=== PATIENT | male | born 1975 | race Two or more races ===

== ENCOUNTER 2017-03-16 08:14 | Day surgery (SDC) | payer MEDICAID ==
[2017-03-16 09:18] VITALS: O2SAT 100
[2017-03-16] MEDS ORDERED: Lactated Ringer's 1,000 ML IV ONE (12:10)
[2017-03-16] MEDS ORDERED: Midazolam 2 MG/2 ML VIAL ONE (12:13)
[2017-03-16] MEDS ORDERED: Propofol 10 mg/ml Inj (20 ML) ONE (12:13)
[2017-03-16] MEDS ORDERED: Lactated Ringer's 500 ML IV SCH (12:30)
[2017-03-16 13:48] VITALS: BP 132/88; PULSE 63; RESP 13; TEMP 97.2
== END 2017-03-16 13:40 | disposition home or self-care (01) ==
LOC: C.ENDO 08:14
PROVIDERS: ATTEND Internal Medicine Gastroenterology
DX: K29.50 Unspecified chronic gastritis without bleeding (principal); R10.13 Epigastric pain

== ENCOUNTER 2017-04-18 07:35 | Emergency (ER) | payer MEDICAID ==
[2017-04-18 07:39] VITALS: BMI 25.9
[2017-04-18 07:40] VITALS: RESP 18; O2SAT 100
[2017-04-18] MEDS ORDERED: Aspirin 325 mg EC Tablets PO STA (08:11)
[2017-04-18 08:39] LABS: INR 1.1
[2017-04-18 08:43] LABS: BASO % 0.7 % (0.0-2.0); CHLORIDE 100 mmol/L (98-107); EOS # 0.1 K/uL (0.0-0.7); LYMPH # 1.4 K/uL (1.0-4.3); LYMPH % 48.7 % (20.0-40.0); MEAN CELL VOLUME 82.5 fL (80.0-94.0); MEAN CORPUSCULAR HGB CONC 32.7 g/dL (33.0-37.0); MONO # 0.3 K/uL (0.0-0.8); MONO % 10.9 % (0.0-10.0); NRBC % 0.2 % (0.0-2.0); POTASSIUM 4.1 mmol/L (3.6-5.2); RED CELL DISTRIBUTION WIDTH 13.5 % (11.5-14.5); SODIUM 137 mmol/L (132-148)
[2017-04-18 08:44] LABS: RBC URINE < 1 /hpf (0-3); URINE BILIRUBIN NEGATIVE (NEGATIVE); URINE BLOOD NEGATIVE (NEGATIVE); URINE COLOR Yellow (YELLOW); URINE GLUCOSE (UA) NORMAL (Normal); URINE KETONE NEGATIVE (NEGATIVE); URINE LEUKOCYTE ESTERASE NEG Leu/uL (Negative); URINE PROTEIN NEGATIVE (NEGATIVE); URINE UROBILINOGEN NORMAL mg/dL (0.2-1.0); WBC URINE 1 /hpf (0-5)
[2017-04-18 08:44] LABS: WHITE BLOOD COUNT 2.8 K/uL (4.8-10.8)
[2017-04-18 08:45] LABS: CHOLESTEROL 134 mg/dL (0-199); GFR AFRICAN-AMERICAN > 60
[2017-04-18 08:46] LABS: ALB/GLOB RATIO 1.8 (1.0-2.1); ALKALINE PHOSPHATASE 44 U/L (38-126); ALT/SGPT 35 U/L (21-72); AST/SGOT 24 U/L (17-59); BILIRUBIN,TOTAL 0.8 mg/dL (0.2-1.3); BLOOD UREA NITROGEN 10 mg/dL (9-20); CALCIUM 9.7 mg/dl (8.6-10.4); CARBON DIOXIDE 28 mmol/L (22-30); GLUCOSE,RANDOM 93 mg/dL (75-110); TOTAL PROTEIN 7.3 g/dL (6.3-8.3)
--- NOTE | 2017-04-18 09:12 | C.PDOC ---
History Of Present Illness 41 year old male with a history of gastritis presents to the ED with complaints of left sided chest pain intermittently with associated palpitations for 8 months. He states symptoms worsening 4 days ago when he felt an associated shortness of breath that has since resolved. Patient reports he has sought evaluation from his PMD Dr. Scott, Cargiologist Dr. Cade, and [facility] with results of Stress Test, US, and Echo showed no implications of cardiac disease. An endoscopy performed showed gastritis and patient states he is not taking any medication for it. Patient denies FMHx of heart disease or hx of smoking. Patient denies left arm pain, weakness, numbness, or other complaints at this time. Time Seen by Provider: 04/18/17 07:56 Chief Complaint (Nursing): Chest Pain History Per: Patient History/Exam Limitations: no limitations Onset/Duration Of Symptoms: Intermittent Episodes, Persistent (8 months ), Worse Since (4 days ) Current Symptoms Are (Timing): Still Present Quality: Other (described as bloating, throbbing sensation ) Modifying Factors: None Exacerbating Factors: Exertion (at times, not consistently ) Alleviating Factors: None Recent travel outside of the [place]: No Past Medical History Reviewed: Historical Data, Nursing Documentation, Vital Signs Vital Signs: Last Vital Signs Temp 98.0 F 04/18/17 09:32 Pulse 66 04/18/17 09:32 Resp 18 04/18/17 09:32 BP 131/79 04/18/17 09:32 Pulse Ox 100 04/18/17 11:05 Family History: States: Unknown Family Hx - Social History Hx Tobacco Use: Yes (2 cig every 2 weeks) Hx Alcohol Use: Yes (social) Hx Substance Use: No - Immunization History Hx Tetanus Toxoid Vaccination: No Hx Influenza Vaccination: Yes Hx Pneumococcal Vaccination: No Review Of Systems Constitutional: Negative for: Fever, Chills Cardiovascular: Positive for: Chest Pain, Palpitations Respiratory: Negative for: Cough, Shortness of Breath Gastrointestinal: Negative for: Nausea, Vomiting, Abdominal Pain, Diarrhea Neurological: Negative for: Weakness, Numbness Physical Exam - Physical Exam Appears: Non-toxic, No Acute Distress Skin: Warm, Dry, No Rash Head: Atraumatic, Normacephalic, No Tenderness Eye(s): bilateral: Normal Inspection, PERRL, EOMI Oral Mucosa: Moist Neck: Normal ROM, Supple Chest: Symmetrical, No Deformity, No Tenderness Cardiovascular: Rhythm Regular, No Murmur Respiratory: No Rales, No Rhonchi, No Wheezing, Other (clear to auscultation bilaterally ) Gastrointestinal/Abdominal: Soft, No Tenderness, No Distention, No Guarding, No Rebound Extremity: Normal ROM, No Tenderness, No Pedal Edema, No Calf Tenderness, Capillary Refill (< 2 seconds ), No Deformity, No Swelling Neurological/Psych: Oriented x3, Normal Speech, Other (Patient appears anxious) ED Course And Treatment - Laboratory Results Result Diagrams: 04/18/17 08:27 04/18/17 08:27 Lab Interpretation: No Acute Changes ECG: Interpreted By Me, Viewed By Me ECG Rhythm: Sinus Rhythm Interpretation Of ECG: Normal axis, no ST-T wave changes. Rate From EC O2 Sat by Pulse Oximetry: 100 (RA) Pulse Ox Interpretation: Normal - Radiology CXR: Viewed By Me, Read By Radiologist CXR Interpretation: Yes: No Acute Disease, Other (No focal consolidation, significant pleural effusion, or definite pneumothorax identified.) Progress Note: EKG, CXR, blood work, and labs were ordered. Patient was given Aspirin. Medical Decision Making Medical Decision Making: Impression: Chest pain on and off for 8 months, prior cardiac workups in the past at [facility]. Likely anxiety vs musculoskeletal Prior records reviewed: Endoscopy on 03/16/[address] Leon, Dx gastritis, negative for H. Pylori US from 03/29/17 shows 3mm nonmobile nonshadowing echogenic foci at level of gallbladder which may represent polyp. Plan * EKG * CXR * Labs Progress: EKG reviewed and NS with no ischemic changes CXR shows normal heart size and no cardiopulmonary disease Labs reviewed and showed leukopenia, no prior comparison. Otherwise negative troponin. Normal H/H. Normal lipids. Discussed results with patient, and copy of report was provided. On re-examination, patient is resting comfortably in no acute distress. Patient reports improvement of symptoms. Patient feels comfortable going home and will be discharged. Patient given follow up instructions. Instructed to return to ER if symptoms worsen or new symptoms arise. Disposition Counseled Patient/Family Regarding: Studies Performed, Diagnosis, Need For Followup - Disposition Referrals: Liv Scott MD [Staff Provider] - Arturo Leon MD [Staff Provider] - Disposition: HOME/ ROUTINE Disposition Time: 09:34 Condition: STABLE Additional Instructions: All your labs, Chest xray and EKG were normal. It is important that you follow up with primary doctor and with forklift driver for further evaluation and care You have gastritis and may take omeprazole as needed for any pain, if pain is daily then take daily Prescriptions: Omeprazole 20 mg PO DAILY #30 capsule.dr Instructions: Gastritis (DC), Diet for Ulcers and Gastritis (ED), Noncardiac Chest Pain (ED) Forms: [employer] (K[place]i) - POA Present On Arrival: None - Clinical Impression Clinical Impression: Non-cardiac chest pain, Gastritis - PA / BENDING ROLL HAND / Resident Statement MD/DO has reviewed & agrees with the documentation as recorded. - Scribe Statement The provider has reviewed the documentation as recorded by the Rajendraibsilvestre Trivedi All medical record entries made by the Mick were at my direction and personally dictated by me. I have reviewed the chart and agree that the record accurately reflects my personal performance of the history, physical exam, medical decision making, and the department course for this patient. I have also personally directed, reviewed, and agree with the discharge instructions and disposition.
[2017-04-18 09:33] VITALS: BP 131/79; PULSE 66; TEMP 98
--- NOTE | 2017-04-18 10:27 | RAD ---
HISTORY: chest pain COMPARISON: None available. TECHNIQUE: Chest PA and lateral FINDINGS: LUNGS: No focal consolidation. Please note that chest x-ray has limited sensitivity for the detection of pulmonary masses. PLEURA: No significant pleural effusion identified. No definite pneumothorax . CARDIOVASCULAR: The cardiomediastinal silhouette appears within normal limits of size. OSSEOUS STRUCTURES: No acute osseous abnormality identified. VISUALIZED UPPER ABDOMEN: Unremarkable. OTHER FINDINGS: None. IMPRESSION: No focal consolidation, significant pleural effusion, or definite pneumothorax identified.
--- NOTE | 2017-04-20 08:43 | CARD ---
APPROVED REPORT EKG Measurement Heart [id number] <Conclusion> Normal sinus rhythm Normal ECG
== END 2017-04-18 09:41 | disposition home or self-care (01) ==
LOC: C.ER 07:35
DX: R07.89 Other chest pain (principal); K29.70 Gastritis, unspecified, without bleeding

== ENCOUNTER 2017-09-30 12:00 | Emergency (ER) | payer OTHER ==
[2017-09-30 12:00] VITALS: BMI 25.9
[2017-09-30 13:18] LABS: BASO % 0.9 % (0.0-2.0); EOS # 0.1 K/uL (0.0-0.7); EOS % 3.6 % (0.0-4.0); HEMOGLOBIN 13.4 g/dL (12.0-18.0); LYMPH # 1.2 K/uL (1.0-4.3); LYMPH % 49.5 % (20.0-40.0); MEAN CELL VOLUME 81.4 fL (80.0-94.0); MEAN CORPUSCULAR HEMOGLOBIN 27.4 pg (27.0-31.0); MEAN CORPUSCULAR HGB CONC 33.7 g/dL (33.0-37.0); MEAN PLATELET VOLUME 8.3 fL (7.2-11.7); MONO # 0.3 K/uL (0.0-0.8); MONO % 12.4 % (0.0-10.0); NEUT # 0.8 K/uL (1.8-7.0); NEUT % 33.6 % (50.0-75.0); NRBC % 0.2 % (0.0-2.0); RBC 4.88 Mil/uL (4.40-5.90); RED CELL DISTRIBUTION WIDTH 13.6 % (11.5-14.5); WHITE BLOOD COUNT 2.5 K/uL (4.8-10.8)
[2017-09-30 13:35] LABS: ALB/GLOB RATIO 1.5 (1.0-2.1); ALBUMIN 4.3 g/dL (3.5-5.0); ALT/SGPT 25 U/L (21-72); AST/SGOT 19 U/L (17-59); BLOOD UREA NITROGEN 11 mg/dL (9-20); CALCIUM 9.1 mg/dl (8.6-10.4); GFR AFRICAN-AMERICAN > 60; GFR NON-AFRICAN AMERICAN > 60
[2017-09-30 13:50] LABS: CK-MB 0.25 ng/mL (0.0-3.38)
--- NOTE | 2017-09-30 14:03 | RAD ---
HISTORY: CHEST PAIN COMPARISON: Comparison chest 04/18/2017 TECHNIQUE: Chest PA and lateral FINDINGS: LUNGS: No active pulmonary disease. PLEURA: No significant pleural effusion identified. No pneumothorax apparent. CARDIOVASCULAR: Normal. OSSEOUS STRUCTURES: Minor multilevel degenerative spondylosis of the thoracic spine VISUALIZED UPPER ABDOMEN: Normal. OTHER FINDINGS: None. IMPRESSION: No active disease.
--- NOTE | 2017-09-30 15:30 | C.PDOC ---
History Of Present Illness 42 year old male presents to the emergency department with complaints of intermittent chest pain ongoing for the past year. Patient states that his pain is worse in the morning upon waking up, describing his pain as his heart racing. Patient reports being seen by a algorithm developer last year and reports having a normal stress test and echo. Patient states that he was put on a assurance senior at the time and was started on Propranolol. Patient denies cough , fever, shortness of breath, abdominal pain, nausea, vomiting, diarrhea. Patient has no cardiac history. Time Seen by Provider: 09/30/17 12:05 Chief Complaint (Nursing): Chest Pain History Per: Patient History/Exam Limitations: no limitations Onset/Duration Of Symptoms: Other (1 year) Current Symptoms Are (Timing): Still Present Quality: "Pain" Associated Symptoms: denies: Nausea Exacerbating Factors: Other (waking up) Past Medical History Reviewed: Historical Data, Nursing Documentation, Vital Signs Vital Signs: Last Vital Signs Temp 98.7 F 09/30/17 15:42 Pulse 66 09/30/17 15:42 Resp 20 09/30/17 15:42 BP 129/79 09/30/17 15:42 Pulse Ox 100 09/30/17 15:42 - Medical History PMH: No Chronic Diseases Denies: Chronic Kidney Disease Surgical History: No Surg Hx Family History: States: Unknown Family Hx - Social History Hx Tobacco Use: Yes (2 cig every 2 weeks) Hx Alcohol Use: No (social) Hx Substance Use: No - Immunization History Hx Tetanus Toxoid Vaccination: No Hx Influenza Vaccination: No Hx Pneumococcal Vaccination: No Review Of Systems Constitutional: Negative for: Fever Cardiovascular: Positive for: Chest Pain, Palpitations Respiratory: Negative for: Cough, Shortness of Breath Gastrointestinal: Negative for: Nausea, Vomiting, Abdominal Pain, Diarrhea Physical Exam - Physical Exam Appears: Non-toxic, No Acute Distress Cardiovascular: Rhythm Regular Respiratory: Normal Breath Sounds Gastrointestinal/Abdominal: Normal Exam, Soft, No Tenderness ED Course And Treatment - Laboratory Results Result Diagrams: 09/30/17 13:14 09/30/17 13:14 ECG: Interpreted By Me ECG Rhythm: Sinus Rhythm ECG Interpretation: Normal Interpretation Of ECG: Normal axis, no acute ST changes O2 Sat by Pulse Oximetry: 99 (RA) Pulse Ox Interpretation: Normal Progress Note: Plan: Bloodwork. CXR Two Views Disposition Counseled Patient/Family Regarding: Studies Performed, Diagnosis, Need For Followup - Disposition Referrals: Liv Scott MD [Staff Provider] - Disposition: HOME/ ROUTINE Disposition Time: 15:30 Condition: STABLE Additional Instructions: FOLLOW UP WITH YOUR DOCTOR IN 1-2 DAYS RETURN TO EMERGENCY ROOM IF SYMPTOMS WORSEN Instructions: Chest Pain That Is Not Caused by the Heart (DC) Forms: [employer] (Mal[place]ian) Print Language: MALTESE - POA Present On Arrival: None - Clinical Impression Clinical Impression: Non-cardiac chest pain - Scribe Statement The provider has reviewed the documentation as recorded by the Scribe (tSeven Gerber) All medical record entries made by the Scribe were at my direction and personally dictated by me. I have reviewed the chart and agree that the record accurately reflects my personal performance of the history, physical exam, medical decision making, and the department course for this patient. I have also personally directed, reviewed, and agree with the discharge instructions and disposition.
[2017-09-30 15:46] VITALS: BP 129/79; PULSE 66; RESP 20; TEMP 98.7
[2017-09-30 16:40] VITALS: O2SAT 99
== END 2017-09-30 15:46 | disposition home or self-care (01) ==
LOC: C.ER 12:00
DX: R07.89 Other chest pain (principal)